=== PATIENT | female | born 1990 ===

== ENCOUNTER 2017-09-25 11:15 | Emergency (ER) | payer MEDICAID ==
[2017-07-03 23:10] VITALS: BMI 30.8
--- NOTE | 2017-09-25 11:48 | OBHP ---
Datetime: 09/25/2017 11:44 IP Adm Impression: Term, intrauterine IP Admit Plan: Discharge home Admit Comment, IP Provider: at 37=weeks came with c/o discharge coming in the morning x 1, no c txs, vb,=fm.no brianna now obhx 2 x nsbvd pmh de meed pnv allnkda psh de soch de sse no pooling, neg nitrazine ve closed a/p at 37weks r/o rom dc home labor ins given po hy f/u in clinic in 1day Pelvic Type - PN: Adequate Extremities - PN: Normal Abdomen - PN: Normal Back - PN: Normal Breast - PN: Normal Lungs - PN: Normal Heart - PN: Normal Thyroid - PN: Normal Neurologic - PN: Normal HEENT - PN: Normal General - PN: Normal Membranes, Provider: Intact Contraction Comments Provider: occ Pool Provider: Negative Nitrazine Provider: Negative EGA AdmitDate IP: 37.4 Vital Signs Provider: Reviewed; Within Normal Limits IP Chief Complaint: Suspected ruptured membranes Dilatation, Provider: 0 Effacement, Provider: 0 Station, Provider: -3 Genitourinary Exam: Normal DTRs - PN: Normal
--- NOTE | 2017-09-25 11:50 | OBDCSUM ---
Datetime: 09/25/2017 11:47 Discharged to, Provider: Home Follow up at, Provider: 1day Follow up in weeks, Provider: clinic Discharge Comment, Provider: dc home labor ins given po hy f/u in clinic in 1day Discharge Diagnosis Prov Other: 37week r/o rom nst
[2017-09-25 16:20] VITALS: BP 95/73; PULSE 102
== END 2017-09-25 12:02 | disposition home or self-care (01) ==
LOC: C.EROB 11:15
DX: O26.893 Other specified pregnancy related conditions, third trimester (principal); Z3A.37 37 weeks gestation of pregnancy

== ENCOUNTER 2017-10-02 23:20 | Inpatient (IN) | payer MEDICAID ==
[2017-10-02 23:33] VITALS: BMI 34.8
--- NOTE | 2017-10-02 23:33 | OBADHP ---
Datetime: 10/02/2017 23:28 Admit Comment, IP Provider: at 38+weeks came wiyth c/o ctxs q 6 min , irrg , 11/10,no vb, lof=fm obhx 2 x pmh de med pnv all nkda psh de soch de ve /-2 a/p at 38=weeks in labor admit to l_d npo/ivf labs pain isidra cont matt and efm anticipaye Pelvic Type - PN: Adequate Extremities - PN: Normal Abdomen - PN: Normal Back - PN: Normal Breast - PN: Normal Lungs - PN: Normal Heart - PN: Normal Thyroid - PN: Normal Neurologic - PN: Normal HEENT - PN: Normal General - PN: Normal FHR - Baseline A Provider: 130 Contraction Comments Provider: irrg IP Hx Assessment: The History has been Reviewed and is Current Vital Signs Provider: Reviewed IP Chief Complaint: Uterine contractions NICHD Variability Prov Fetus A: Moderate 6-25bpm NICHD Accel Fetus A IP Provider: [id number] FHR Category Provider Fetus A: Category I Dilatation, Provider: 3 Effacement, Provider: 70 Station, Provider: -2 Genitourinary Exam: Normal DTRs - PN: Normal EGA AdmitDate IP: 38.4 IP Adm Impression: Term, intrauterine IP Admit Plan: Admit to unit; Initiate labor protocol Datetime: 09/25/2017 11:44 Membranes, Provider: Intact Pool Provider: Negative Nitrazine Provider: Negative
[2017-10-02] MEDS ORDERED: Lactated Ringer's 1,000 ML IV SCH (23:45)
[2017-10-03 00:26] LABS: BASO % 0.3 % (0.0-2.0); EOS # 0.1 K/uL (0.0-0.7); EOS % 0.8 % (0.0-4.0); HEMOGLOBIN 12.3 g/dL (11.0-16.0); LYMPH # 1.5 K/uL (1.0-4.3); LYMPH % 16.5 % (20.0-40.0); MEAN CORPUSCULAR HEMOGLOBIN 34.3 pg (27.0-31.0); MEAN CORPUSCULAR HGB CONC 35.1 g/dL (33.0-37.0); MEAN PLATELET VOLUME 10.5 fL (7.2-11.7); MONO # 0.8 K/uL (0.0-0.8); MONO % 9.2 % (0.0-10.0); NEUT # 6.6 K/uL (1.8-7.0); NEUT % 73.2 % (50.0-75.0); RBC 3.58 Mil/uL (3.80-5.20); RED CELL DISTRIBUTION WIDTH 13.2 % (11.5-14.5)
[2017-10-03 00:47] LABS: SQUAMOUS EPITHIAL 9 /hpf (0-5); URINE BILIRUBIN NEGATIVE (NEGATIVE); URINE BLOOD NEGATIVE (NEGATIVE); URINE CLARITY Hazy (Clear); URINE COLOR Yellow (YELLOW); URINE GLUCOSE (UA) NORMAL (Normal); URINE LEUKOCYTE ESTERASE NEG Leu/uL (Negative); URINE PROTEIN NEGATIVE (NEGATIVE); URINE UROBILINOGEN NORMAL mg/dL (0.2-1.0)
[2017-10-03 00:50] LABS: ALB/GLOB RATIO 1.1 (1.0-2.1); ALBUMIN 3.8 g/dL (3.5-5.0); ALT/SGPT 12 U/L (9-52); AST/SGOT 22 U/L (14-36); BLOOD UREA NITROGEN 11 mg/dL (7-17); CALCIUM 9.3 mg/dl (8.6-10.4); GFR AFRICAN-AMERICAN > 60; GFR NON-AFRICAN AMERICAN > 60
[2017-10-03] MEDS ORDERED: Fentanyl/Bupivacaine HCl 250 ML EPI ONE (02:03)
[2017-10-03] MEDS ORDERED: Oxytocin 30 UNIT 30 UNITS/500 ML BAG IV PRN (06:03)
[2017-10-03] MEDS ORDERED: Oxytocin 30 UNIT 30 UNITS/500 ML BAG IV SCH (06:15)
--- NOTE | 2017-10-03 07:37 | OBDS ---
MATERNAL INFORMATION Provider Comments: Pt was fully dilated and pushing, atrumatic, spontaneous delivery of head . no nu chal cord noted. Atruamtic, spontaneous delivery of anterior followed by posterior shoulder followed by deliveyr of suzie body. Both oral and nasal passages of the baby were bulb suctioned. Umbilcal cord clamped and cut. Baby handed to mother on abdomen with rn assistance. Cord blood collected and sent x 2. Spontanous delivery of intact placenta with membranes. Fundus fimr, Goo dhemostais. periurtreal lacratoin noted and repaired with 3-0 chromic. good hemostiss, no complications Live femasle ifnat weigh tof 3030 grams agpars 9,9 ebl 100 ml LABOR SUMMARY EDC: 10/12/2017 00:00 LABOR INFORMATION Onset of Labor: 10/02/2017 03:30 Group B Beta Strep: Negative MEMBRANES Membranes Rupture Method: Spontaneous Rupture of Membranes: 10/03/2017 04:00 Length of Rupture (hrs): 3.32 Amniotic Fluid Color: Light Meconium Amniotic Fluid Amount: Moderate Amniotic Fluid Odor: Normal STAGES OF LABOR Stage 3 hrs: 0 Stage 3 min: 3 Total Time in Labor hrs: 27 Total Time in Labor min: 52 VAGINAL DELIVERY Episiotomy: None Laceration Extension: First Degree Laceration Type: Periurethral Other Laceration: N/A Laceration Repair: Yes Initial Vag Sponge Count: 10 Final Vag Sponge Count: 10 Initial Vag Sharps Count: 1 Final Vag Sharps Count: 1 Sponge Count Correct: Yes; Vaginal Sweep Performed Sharps Count Correct: Yes BABY A INFORMATION Delivery Date/Time: 10/03/2017 07:19 Method of Delivery: Vaginal Born in Route : No : N/A Forceps: N/A Vacuum Extraction: N/A Shoulder Dystocia : No SHOULDER DYSTOCIA BABY A Delivery Date/Time: 10/03/2017 07:19 PRESENTATION/POSITION BABY A Presentation: Cephalic Cephalic Presentation: Vertex Vertex Position: Left Occipital Anterior Breech Presentation: N/A PLACENTA INFORMATION BABY A Placenta Delivery Time : 10/03/2017 07:22 Placenta Method of Delivery: Spontaneous Placenta Status: Delivered INFORMATION BABY A Gestational Age at Delivery: 38.0 Gestational Status: Term Infant Outcome : Liveborn Condition : Stable Infant Sex: Female IDENTIFICATION/MEDS BABY A ID Band Number: [id number] Sensor Number: [id number] CORD INFORMATION BABY A Nuchal Cord : N/A ASSESSMENT BABY A Physical Findings at Delivery: Within Normal Limits Infant Respirations: Appears Normal Cement Breaker/ALS Called : No Infant Care By: Nena Cook RN Transferred To: Remains with Mother
[2017-10-03] MEDS: Oxycodone/Acetaminophen 5/325 mg Tab PO PRN (23:49)
[2017-10-04 08:34] LABS: HEMOGLOBIN 11.8 g/dL (11.0-16.0); MEAN CELL VOLUME 98.4 fL (81.0-99.0); MEAN CORPUSCULAR HEMOGLOBIN 34.7 pg (27.0-31.0); MEAN CORPUSCULAR HGB CONC 35.2 g/dL (33.0-37.0); MEAN PLATELET VOLUME 10.5 fL (7.2-11.7); RBC 3.42 Mil/uL (3.80-5.20); RED CELL DISTRIBUTION WIDTH 13.2 % (11.5-14.5); WHITE BLOOD COUNT 8.5 K/uL (4.8-10.8)
[2017-10-04] MEDS: Oxycodone/Acetaminophen 5/325 mg Tab PO PRN ×2 (08:34→22:04)
[2017-10-04 08:57] LABS: ALT/SGPT 15 U/L (9-52); AST/SGOT 34 U/L (14-36); BLOOD UREA NITROGEN 8 mg/dL (7-17); CALCIUM 8.5 mg/dl (8.6-10.4); GFR AFRICAN-AMERICAN > 60; GFR NON-AFRICAN AMERICAN > 60
--- NOTE | 2017-10-04 10:13 | OBPPN ---
Datetime: 10/04/2017 09:13 PP Pain Prov: Within normal limits PP Nausea Prov: Denies PP Flatus Prov: Yes PP BM Prov: No PP Breasts Prov: Normal PP Heart Prov: Normal PP Lungs Prov: Normal PP Abdomen/Uterus Prov: Normal PP Extremities Prov: Normal PP Progress Prov: Normal PP Comments Phys Exam Prov: hgb 11.8 PP Impression Prov: Normal progression; difficulties PP Plan Prov: Continue present management PP Progress Note Prov: s: tolerating reg diet; pt states she has breast fed her other children but a ttempt at at presnt is not successful p: consult rout pp care Vital Signs Provider PP: Reviewed
[2017-10-05] MEDS ORDERED: guaiFENesin DM 100 mg-10 mg/5 ml UD PO PRN (01:29)
[2017-10-05 08:40] VITALS: BP 113/64; PULSE 82; RESP 18; TEMP 98.9; O2SAT 99
--- NOTE | 2017-10-05 11:35 | OBDCSUM ---
Datetime: 10/05/2017 11:32 Discharged to, Provider: Home Follow up at, Provider: 6 Disch Instr Activity: Normal activity Disch Instr Diet: Regular Discharge Instructions, Provider: Routine instructions given Discharge Diagnosis, Provider: Term Delivered Discharge Time: 10/05/2017 11:32 Follow up in weeks, Provider: Disch Referrals: None Contraception discussed, Prov: Yes Discharge Comment, Provider: Follow up 6 weeks Datetime: 09/25/2017 11:47 Discharge Instructions, Provider: Routine instructions given Discharge Diagnosis, Provider: Term Delivered Contraception discussed, Prov: No
[2017-10-06] MEDS ORDERED: MULTIVITAMIN PO SCH (10:00)
[2017-10-06] MEDS ORDERED: IRON PO SCH (10:00)
[2017-10-06] MEDS ORDERED: FOLIC ACID PO SCH (10:00)
[2017-10-06] MEDS ORDERED: Prenatal Multivit/Folic Acid/Iron Tab PO SCH (10:00)
== END 2017-10-05 13:54 | disposition home or self-care (01) | DRG 373 ==
LOC: C.EROB 23:20 → C.4D 23:32 → C.4M 10-03 10:37
PROVIDERS: ADMIT Obstetrics & Gynecology; ATTEND Obstetrics & Gynecology
PROC: 10E0XZZ Delivery of Products of Conception, External Approach (ICD-10-PCS; principal; 2017-10-03)
PROC: 0HQ9XZZ Repair Perineum Skin, External Approach (ICD-10-PCS; 2017-10-03)
DX: O71.82 Other specified trauma to perineum and vulva (principal); O70.0 First degree perineal laceration during delivery; Z37.0 Single live birth; Z3A.38 38 weeks gestation of pregnancy